=== PATIENT | female | born 1995 | race Caucasian/White ===

== ENCOUNTER 2019-02-16 04:18 | Emergency (ER) | payer MEDICAID, OTHER ==
[~2019-02-16] VITALS: Ht 154.9 cm; Wt 48.0 kg
[2019-02-16] MEDS ORDERED: ALBUTEROL (0.083%) 2.5MG/3ML NEB HHN STA (04:54)
[2019-02-16] MEDS ORDERED: PREDNISONE 20MG TABLET PO STA (04:54)
[2019-02-16] MEDS ORDERED: IPRATROPIUM BROMIDE (0.02%) 0.5MG/2.5ML NEB HHN STA (04:54)
[2019-02-16 06:13] VITALS: BP 115/75
== END 2019-02-16 06:17 | disposition home or self-care (01) ==
LOC: ER 04:18
DX: J45.901 Unspecified asthma with (acute) exacerbation (principal)
CPT/HCPCS: 99283; J7512; J7611

== ENCOUNTER 2019-11-14 08:17 | Emergency (ER) | payer MEDICAID ==
[~2019-11-14] VITALS: Ht 167.6 cm; Wt 59.0 kg
[2019-11-14] MEDS ORDERED: PREDNISONE 20MG TABLET PO STA (08:42)
[2019-11-14] MEDS ORDERED: IPRATROPIUM BROMIDE (0.02%) 0.5MG/2.5ML NEB HHN STA (08:42)
[2019-11-14] MEDS ORDERED: ALBUTEROL (0.083%) 2.5MG/3ML NEB HHN STA (08:42)
[2019-11-14] MEDS ORDERED: IBUPROFEN 600MG TABLET PO ONE (09:45)
[2019-11-14] MEDS ORDERED: ALBUTEROL (0.5%) 2.5MG/0.5ML NEB HHN ONE (10:00)
[2019-11-14 10:45] VITALS: BP 123/75
== END 2019-11-14 10:57 | disposition home or self-care (01) ==
LOC: ER 08:26
DX: J45.901 Unspecified asthma with (acute) exacerbation (principal)
CPT/HCPCS: 71045; 94640; 99284; J7512; J7611; Z7610

== ENCOUNTER 2020-05-12 10:27 | Emergency (ER) | payer MEDICAID ==
[~2020-05-12] VITALS: Ht 154.9 cm; Wt 50.0 kg
[2020-05-12 10:56] VITALS: BP 117/82
== END 2020-05-12 13:17 | disposition home or self-care (01) ==
LOC: ER 10:27
DX: J45.901 Unspecified asthma with (acute) exacerbation (principal)
CPT/HCPCS: 99283